=== PATIENT | female | born 1985 | race Caucasian/White ===

== ENCOUNTER 2017-02-07 20:34 | Emergency (ER) | payer OTHER ==
[~2017-02-07] VITALS: Ht 157.5 cm; Wt 81.7 kg
[~2017-02-07 20:34] MED LIST: ADVIL,NUPRIN,M200 MG PO; DEPO IM; ENDOCET 5-3251 EACH PO; FLAGYL500 MG PO; IBUPROFEN800 MG PO; METHADONE10 MG/1 M1 PO; METHADOSE40 MG PO; PRENATAL TABLE1 EAC3 PO; ULTRAM50 MG PO; ZITHROMAX500 MG PO
[2017-02-07 22:02] LABS: HEMATOCRIT 37.4 % (36.0-46.0); MCH 29.7 PG (29.0-34.0); MCHC 32.4 G/DL (30.0-36.0); MCV 91.7 FL (83-99); MEAN PLAT.VOLUME 9.6 uM^3 (9.5-12.4); PLATELET COUNT 241 K/uL (156-360); RBC DIS.WIDTH-CV 12.4 % (11.8-14.6); RBC DIS.WIDTH-SD 41.8 % (39-53); RED BLOOD COUNT 4.08 M/uL (3.80-5.20)
[2017-02-07 22:11] LABS: CHLORIDE 110 mEq/L (99-109); POTASSIUM 4.1 mEq/L (3.7-5.4); SODIUM 143 mEq/L (136-147)
[2017-02-07 22:13] LABS: GLUCOSE 112 mg/dL (70-99)
[2017-02-07 22:14] LABS: ANION GAP 7 MEQ/L (2-14)
[2017-02-07 22:16] LABS: GFR ESTIMATE (CALCULATED) > 59 mL/min/
[2017-02-07 22:17] LABS: UREA NITROGEN (BUN) 12 mg/dL (9-23)
[2017-02-07] MEDS ORDERED: CLINDAMYCIN HC300 MG PO (23:40)
[2017-02-07] MEDS ORDERED: TRAMADOL HCL50 MG PO (23:45)
[2017-02-07 23:50] VITALS: BP 139/87
[2017-02-08] MEDS ORDERED: MOTRIN800 MG PO (11:01)
[2017-02-08] MEDS ORDERED: ZOFRAN ODT4 MG PO (11:01)
== END 2017-02-07 23:51 | disposition home or self-care (01) ==
LOC: EME 20:34
PROVIDERS: Emergency Medicine
DX: L03.211 Cellulitis of face (principal); K02.9 Dental caries, unspecified; F17.200 Nicotine dependence, unspecified, uncomplicated
CPT/HCPCS: 70491; 80048; 85027; 99281; 99284; J2270

== ENCOUNTER 2017-02-08 09:35 | Emergency (ER) | payer OTHER ==
[~2017-02-08] VITALS: Ht 158.8 cm; Wt 80.2 kg
[~2017-02-08 09:35] MED LIST changes: +CLINDAMYCIN HC300 MG PO; +TRAMADOL HCL50 MG PO
[2017-02-08] MEDS ORDERED: ZOFRAN ODT4 MG PO (11:01)
[2017-02-08] MEDS ORDERED: MOTRIN800 MG PO (11:01)
[2017-02-08 12:07] VITALS: BP 110/72
== END 2017-02-08 12:11 | disposition home or self-care (01) ==
LOC: EME 09:35
DX: L03.211 Cellulitis of face (principal); R11.2 Nausea with vomiting, unspecified; K02.9 Dental caries, unspecified; F17.200 Nicotine dependence, unspecified, uncomplicated; Z88.0 Allergy status to penicillin
CPT/HCPCS: 99281; 99284; J1100; J1885; J2405; J7030

== ENCOUNTER 2017-02-21 16:29 | Emergency (ER) | payer OTHER ==
[~2017-02-21] VITALS: Ht 157.5 cm; Wt 81.6 kg
[~2017-02-21 16:29] MED LIST changes: +MOTRIN800 MG PO; +ZOFRAN ODT4 MG PO
[2017-02-21] MEDS ORDERED: CLEOCIN300 MG PO (19:21)
[2017-02-21] MEDS ORDERED: ZOFRAN ODT4 MG PO (19:21)
[2017-02-21] MEDS ORDERED: MOTRIN800 MG PO (19:21)
[2017-02-21 19:48] VITALS: BP 129/91
== END 2017-02-21 19:50 | disposition home or self-care (01) ==
LOC: EME 16:29
DX: K04.7 Periapical abscess without sinus (principal); F17.200 Nicotine dependence, unspecified, uncomplicated
CPT/HCPCS: 99281; 99284